=== PATIENT | female | born 1995 | race Caucasian/White ===

== ENCOUNTER 2019-07-12 10:00 | Inpatient (IN) | payer OTHER ==
[2019-07-12 10:30] VITALS: BMI 26.9
[2019-07-12] MEDS ORDERED: DINOPROSTONE 10 MG VAGINAL SUPPOSITORY VG ONE (11:03)
--- NOTE | 2019-07-12 12:28 | HP ---
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 DESIGN INTERN: No: Alzheimer's, CVA, Dementia, Migraine, Multiple Sclerosis, Peripheral Neuropathy, Parkinson's, Seizure, Syncope, TIA, Vertigo, Other Cardiovascular: No: AFIB, Aneurysm, Aortic Insufficiency, Aortic Stenosis, CAD, CHF, Deep Vein Thrombosis, HTN, Hyperlipdemia, NE, Mitral Insufficiency, Mitral Stenosis, Murmur, Pulmonary Hypertension, Other Pulmonary: No: Asthma, Bronchitis, Cancer, COPD, O2 Dependent, Pneumonia, Previously Intubated, Pulmonary Embolus, Pulmonary Fibrosis, Sleep Apnea, Other Gastrointestinal: No: Ascites, Cancer, Constipation, Crohn's Disease, Diverticulitis, Diverticulosis, Esophageal Varices, Gastritis, GERD, GI Bleed, Hemorrhoids, Hiatal Hernia, Inflamatory Bowel Disease, Irritable Bowel Disease, Pancreatitis, Peptic Ulcer Disease, Ulcerative Colitis, Other Hepatobiliary: No: Cirrhosis, Cholelithiasis, Cholecystitis, Choledocholithiasis , Hepatitis A, Hepatitis B, Hepatitis C, Other Renal/: No: Renal Failure, Renal Inusuff, BPH, Cancer, Hematuria, Hemodialysis , Neurogenic Bladder, Renal Calculi, UTI, Other Reproductive: No: Ectopic , Endometriosis, Fibroids, PID, Polycystic Ovary Syndrome, Postmenopausal, Other ...: 1 ...Para: 0 ...Term: 0 ...: 0 ...Spon : 0 ...Induced : 0 ...Multiple Gestation: 0 ...LMP: 09/29/18 ...EDC by Sono: 07/06/18 Heme/Onc: No: Anemia, B12 Deficiency, Bleeding Disorder, Cancer, Current Chemotherapy, Current Radiation Therapy, Hemochromatosis, Hypercoaguable State, Myeloproliferative Synd, Sickle Cell Disease, Sickle Cell Trait, Thrombocytopenia, Other Infectious Disease: No: AIDS, C-Diff, Herpes Zoster, HIV, MRSA, STD's, Tuberculosis, VREF, Other Psych: No: Addictions, Anxiety, Bipolar, Depression, Panic, Psychosis, Schizophrenia, Other Musculoskeletal: No: Bursitis, Chronic low back pain, Hemiparesis, Hemiplegia, Osteoarthritis, Paraplegia, Other Rheumatology: No: Fibromyalgia, Gout, Lupus, Rheumatoid Arthritis, Sarcoidosis, Vasculitis, Other ENT: No: Allergic Rhinitis, Sinusitis, Other Endocrine: No: Cumberland's Disease, Kaitlynn's Disease, Diabetes Insipidus, Diabetes Mellitus, Hyperparathyroidism, Hyperthyroidism, Hypothyroidism, Osteopenia, SIADH, Other Dermatology: No: Basal Cell, Cellulitis, Eczema, Melanoma, Psoriasis, Squamous Cell, Other - Past Surgical History Past Surgical History: No: None, AAA Repair, AICD, Amputation, Appendectomy, Arthrosocopy, AV Fistula/Graft, Bariatric Surgery, Breast Biopsy, Bypass, CABG, Carotid Endarterectomy, Cataract Removal, Cholecystectomy, Colectomy, Colonoscopy, Colostomy, Craniotomy, , Cystectomy, Hernia Repair, Hysterectomy, Ileal Conduit, Ileosotomy, Joint Replacement, Kidney Transplant, Laminectomy, Liver Transplant, Mastectomy, Nephrectomy, Oopherectomy, Orchiectomy, Permanent Pacemaker, Prostatectomy, Splenectomy, Stent, Thoracotomy , TURP, Tonsillectomy, Tubal Ligation, Upper Endoscopy, Valve Replacement, Vasectomy, Vein Stripping/Ligation Hx Myomectomy: No Hx Transabdominal Cerclage: No - Smoking History Smoking history: Never smoked Have you smoked in the past 12 months: No - Alcohol/Substance Use Hx Alcohol Use: No History of Substance Use: reports: None - Social History History of Recent Travel: No Home Medications - Allergies Allergies/Adverse Reactions: Allergies Allergy/AdvReac Type Severity Reaction Status Date / Time No Known Allergies Allergy Verified 07/12/19 10:31 - Home Medications Home Medications: Ambulatory Orders Vitamins (Sjr) - 1 tab PO DAILY 06/25/19 Family Disease History - Family Disease History Family History: Unremarkable Review of Systems - Review of Systems Constitutional: reports: No Symptoms Eyes: reports: No Symptoms HENT: reports: No Symptoms Neck: reports: No Symptoms Cardiovascular: reports: No Symptoms Respiratory: reports: No Symptoms Gastrointestinal: reports: No Symptoms Genitourinary: reports: No Symptoms Breasts: reports: No Symptoms Reported Musculoskeletal: reports: No Symptoms Integumentary: reports: No Symptoms Neurological: reports: No Symptoms Endocrine: reports: No Symptoms Hematology/Lymphatic: reports: No Symptoms Psychiatric: reports: No Symptoms Physical Exam - Maternity Vital Signs: Vital Signs Temperature 98.1 F 07/12/19 10:00 Pulse Rate 95 H 07/12/19 10:00 Respiratory Rate 18 07/12/19 10:00 Blood Pressure 104/65 07/12/19 10:00 O2 Sat by Pulse Oximetry (%) Constitutional: Yes: Well Nourished HENT: Yes: Atraumatic Neck: Yes: Supple Cardiovascular: Yes: Regular Rate and Rhythm Breast(s): Yes: WNL - Abdominal Exam/OB Number of Fetuses: Single Presentation: Vertex (bedside sono performed) Contractions: No Regularity: Irritability Intensity: Unaware Monitor Mode: External Category: I Accelerations: Uniform Decelerations: None - Vaginal Exam/OB Vaginal Bleediing: No Speculum Exam: No (as per Dr Pagan) Presentation: Vertex/Position (bedside sono done) - Physical Exam Edema: Yes Edema: LLE: Trace, RLE: Trace Integumentary: Yes: WNL ...Motor Strength: WNL Psychiatric: Yes: Alert, Oriented - Labs Lab Results: pending Imaging - Results Ultrasound: Report Reviewed Problem List - Problems (1) Code(s): Z34.90 - ENCNTR FOR SUPRVSN OF NORMAL , UNSP, UNSP TRIMESTER Qualifiers: Weeks of gestation: 40 weeks Qualified Code(s): Z3A.40 - 40 weeks gestation of Assessment/Plan 23 y/o G1 @ 40.6wks, presenting for induction of labor at late term, uncomplicated , GBS positive by early Ux. Risks and complications of induction of labor discussed. All questions answered. Informed consent obtained and cervidil previously placed. -Continue induction -GBS prohylaxis once in labor -Continuous monitoring
[2019-07-12 13:21] LABS: BASO % 0.3 % (0-2.0); EOS % 0.4 % (0-4.5); HEMATOCRIT 33.8 % (32.4-45.2); HEMOGLOBIN 11.4 GM/dL (10.7-15.3); LYMPH % 20.5 % (8-40); MCH 31.5 pg (25.7-33.7); MCHC 33.8 g/dl (32.0-36.0); MEAN PLT VOLUME 8.9 fl (7.5-11.1); MONO % 11.4 % (3.8-10.2); NEUT % 67.4 % (42.8-82.8); PLATELET COUNT 208 K/MM3 (134-434); RBC 3.64 M/mm3 (3.60-5.2); WHITE BLOOD COUNT 11.3 K/mm3 (4.0-10.0)
[2019-07-12 13:41] LABS: BLOOD UREA NITROGEN 6.9 mg/dL (7-18); CALCIUM 8.8 mg/dL (8.5-10.1); CREATININE 0.4 mg/dL (0.55-1.3)
[2019-07-12 13:42] LABS: INR 0.94 (0.83-1.09); PROTHROMBIN TIME (PATIENT) 11.1 SEC (9.7-13.0)
[2019-07-12 13:44] LABS: ACTIVATED PTT 27.4 SECONDS (25.2-36.5)
--- NOTE | 2019-07-12 16:20 | PN ---
Progress Note, Labor Vaginal Exam #1 Labor Exam Date: 07/12/19 Labor Exam Time: 16:19 Heart Rate (range): Cat I Dilatation: 2 Effacement (%): 50 Amniotic Membrane Status: Intact Presentation: Vertex/Position Station: -4 Remarks: Pt comfortable Cervidil still in Will remove in 2 hours and start pitocin Kat Frias MD
[2019-07-12] MEDS ORDERED: ELECTROLYTE-148 SOLN 1,000 ML IV SCH (17:15)
[2019-07-12] MEDS ORDERED: OXYTOCIN 30 UNITS in 0.9% NS 30 UNIT/500 ML INFUS.BAG IVPB SCH (18:45)
--- NOTE | 2019-07-12 19:18 | PN ---
Progress Note, Labor Vaginal Exam #2 Labor Exam Date: 07/12/19 Labor Exam Time: 19:17 Heart Rate (range): Cat I Presentation: Vertex/Position Remarks: Cervidil removed 6pm Start pitocin Stadol/epidural prwillow Frias MD
--- NOTE | 2019-07-12 19:32 | PN ---
Progress Note, Labor Vaginal Exam #3 Labor Exam Date: 07/12/19 Labor Exam Time: 19:31 Heart Rate (range): Cat I Dilatation: 2 Effacement (%): 50 Amniotic Membrane Status: Ruptured Presentation: Vertex/Position Station: -3 Remarks: AROM, clear Start Pit Anticipate Kat Frias MD
[2019-07-12] MEDS ORDERED: OXYTOCIN 30 UNITS in 0.9% NS 30 UNIT/500 ML INFUS.BAG IVPB ONE (19:39)
[2019-07-13] MEDS ORDERED: PROMETHAZINE HCL 25 MG/1 ML VIAL IVPB PRN (00:19)
[2019-07-13] MEDS ORDERED: BUTORPHANOL TARTRATE 1 MG/ML VIAL IVPB PRN (00:19)
--- NOTE | 2019-07-13 00:19 | PN ---
Progress Note, Labor Vaginal Exam #1 Labor Exam Date: 07/13/19 Labor Exam Time: 00:19 Heart Rate (range): Cat I Dilatation: 2 Effacement (%): 70 Amniotic Membrane Status: Ruptured Presentation: Vertex/Position Station: -3 Remarks: No significant change Cont pitocin Stadol/epidural prn Kat Frias MD
--- NOTE | 2019-07-13 06:12 | PN ---
Progress Note, Labor Vaginal Exam #4 Labor Exam Date: 07/13/19 Labor Exam Time: 06:10 Heart Rate (range): Cat I Dilatation: 2-3 Effacement (%): 70 Amniotic Membrane Status: Ruptured Presentation: Vertex/Position Station: -3 Remarks: No significant change Now almost 12 hours with pitocin/AROM and no progression into active labor Given option to continue IOL s/p epidural vs proceeding with PLTCS now Pt opts for PLTCS now, risks discussed, consents signed Proceed to OR for failed IOL Kat Frias MD
[2019-07-13] MEDS ORDERED: CITRIC ACID/SODIUM CITRATE 30 ML UNIT-DOSE CUP PO ONE (06:35)
[2019-07-13] MEDS ORDERED: OXYTOCIN 20 UNITS in 0.9% NS 20 UNIT/1,000 ML INFUS.BAG IV ONE (07:58)
--- NOTE | 2019-07-13 09:15 | PN ---
Progress Note (short form) - Note Progress Note: Pt still uncomfortable Cervix unchanged C/S called at 6:10AM Anesthesia unavailable at this time, been aware for over an hour of need for PLTCS for failed IOL. No MD available at this time. Kat Frias MD
[2019-07-13] MEDS ORDERED: ceFAZolin SODIUM 1 GM VIAL ONE (09:52)
[2019-07-13] MEDS ORDERED: KETOROLAC TROMETHAMINE 30 MG/1 ML VIAL ONE (09:52)
[2019-07-13] MEDS ORDERED: PHENYLEPHRINE HCL 10 MG/1 ML SINGLE DOSE VIAL ONE (09:52)
[2019-07-13] MEDS ORDERED: OXYTOCIN 10 UNITS/ML VIAL ONE (10:08)
[2019-07-13] MEDS ORDERED: METHYLERGONOVINE MALEATE 0.2 MG/1 ML AMP IM PRN (10:30)
[2019-07-13] MEDS ORDERED: OXYTOCIN 20 UNITS in 0.9% NS 20 UNIT/1,000 ML INFUS.BAG IV SCH (10:30)
--- NOTE | 2019-07-13 10:30 | OP ---
Operative Note - Note: Operative Date: 07/13/19 Pre-Operative Diagnosis: Failed medical induction, 41 week Operation: Primary Low Transverse Findings: VFI, LORI position, nuchal x 1, no meconium. Apgars 9/9. Weight pending Normal tubes and ovaries bilaterally Post-Operative Diagnosis: Same as Pre-op Surgeon: Denise Frias Porter Head: Romero De Anesthesia: Spinal Estimated Blood Loss (mls): 400 Drains, Volume Out (mls): 200 (clear urine) Operative Report Dictated: Yes
[2019-07-13] MEDS ORDERED: ONDANSETRON 4 MG/2 ML VIAL IVPUSH PRN (10:46)
[2019-07-13] MEDS ORDERED: ACETAMINOPHEN 1000 MG/100 ML VIAL (NON FORMULARY) IVPB ONE (10:48)
--- NOTE | 2019-07-13 11:48 | OP ---
DATE OF OPERATION: 07/13/2019 PREOPERATIVE DIAGNOSIS: A 41-week , failed medical induction. POSTOPERATIVE DIAGNOSIS: A 41-week , failed medical induction. PROCEDURE: Primary low transverse section. ANESTHESIA: Spinal. SURGEON: Denise Frias MD CHEF GERMAN: NANCY Grey ESTIMATED BLOOD LOSS: 400. INTRAVENOUS FLUIDS: Per anesthesia record. URINE OUTPUT: Clear urine, 200 mL. FINDINGS: Viable female , LORI position, asynclitic, nuchal x1, no meconium, 9, 9, weight pending, normal tubes and ovaries bilaterally. COMPLICATIONS: None. CONDITION: Stable to recovery room NATURE OF THE PROCEDURE FOLLOWS: After the appropriate consents were signed, the patient was taken to the operating room where spinal anesthesia was administered. She was placed in the supine position. The abdomen was prepped and draped in the normal sterile fashion. Sterile Cooley catheter was inserted into the bladder. Anesthesia was confirmed. Time-out was performed confirming correct patient and procedure. A Pfannenstiel skin incision was made, carried through to the underlying layers until the fascia was nicked in the midline. The fascia was extended laterally with the Summers scissors. The inferior aspect of the fascia was grasped with the Artur clamps, tented upwards, and the rectus muscles dissected off bluntly and. Attention was then paid to the superior aspect, which was taken down in a similar fashion. The rectus muscles were dissected bluntly in the midline. The peritoneum was then entered bluntly. Bladder blade was inserted. The uterus was then incised in a low transverse fashion. Clear amniotic fluid was noted. The head was delivered without difficulty. After the remaining shoulders and body, nuchal was delivered through and reduced upon full delivery of the infant. The cord was clamped and cut. The was handed off to the awaiting pediatric staff. The placenta was removed manually. The uterus was cleared of all clot and debris. The hysterotomy was closed in a single layer with good hemostasis. The adnexa were inspected and noted to be normal. Gutters were cleared of all clot and debris. The muscles reapproximated with a 2-0 chromic. The fascia was closed with a 0 Vicryl. The skin was closed with a 3-0 Vicryl. Good hemostasis and cosmesis. Appropriate bandages were placed. Sponge, lap, needle counts were correct x3. The patient did receive 2 g of Ancef at the start of the procedure. She was taken from the operating room to the recovery area in a stable condition. DENISE FRIAS MD [id number]
[2019-07-13] MEDS ORDERED: IBUPROFEN 800 MG/8 ML IJ IVPB PRN (15:11)
[2019-07-13] MEDS ORDERED: oxyCODONE HCL 5 MG TABLET PO PRN (15:12)
[2019-07-14] MEDS: SIMETHICONE 80 MG TAB.CHEW (FP) PO PRN ×3 (05:26→18:54)
[2019-07-14] MEDS: IBUPROFEN 600 MG TABLET (FP) PO PRN ×3 (05:26→20:49)
--- NOTE | 2019-07-14 06:58 | PN ---
Progress Note (short form) - Note Progress Note: pod 1 s/p c/s , has mild cramps, no excess vaginal bleeding Last Vital Signs Temp Pulse Resp BP Pulse Ox 98.2 F 73 18 96/53 L 99 07/14/19 04:00 07/14/19 04:00 07/14/19 06:00 07/14/19 04:00 07/13/19 21:00 abdomen soft, no distension, no cva uterus firm lochia mild no calf tenderness plan ambulate , cbc. advance diet
[2019-07-14 08:47] LABS: BASO % 0.3 % (0-2.0); EOS % 0.8 % (0-4.5); HEMATOCRIT 28.3 % (32.4-45.2); HEMOGLOBIN 9.7 GM/dL (10.7-15.3); LYMPH % 16.8 % (8-40); MCH 32.3 pg (25.7-33.7); MCHC 34.2 g/dl (32.0-36.0); MEAN CELL VOLUME 94.6 fl (80-96); MEAN PLT VOLUME 8.8 fl (7.5-11.1); MONO % 9.5 % (3.8-10.2); NEUT % 72.6 % (42.8-82.8); PLATELET COUNT 182 K/MM3 (134-434); RBC 2.99 M/mm3 (3.60-5.2); RDW 12.9 % (11.6-15.6); WHITE BLOOD COUNT 14.2 K/mm3 (4.0-10.0)
[2019-07-14] MEDS ORDERED: BISACODYL 10 MG SUPP.RECT RC PRN (10:31)
[2019-07-14] MEDS: ACETAMINOPHEN 325 MG TABLET (FP) PO PRN ×2 (12:22→20:49)
--- NOTE | 2019-07-14 13:47 | PN ---
Progress Note (short form) - Note Progress Note: Anesthesia POD#1 S/P under Spinal anesthesia and Duramorph VSS,no N/V,no pain issues, leg strength is good. No complications to anesthesia seen. Ai Barboza MD.
[2019-07-15] MEDS: SIMETHICONE 80 MG TAB.CHEW (FP) PO PRN ×5 (04:37→20:42)
[2019-07-15] MEDS: ACETAMINOPHEN 325 MG TABLET (FP) PO PRN ×5 (04:37→20:42)
[2019-07-15] MEDS: IBUPROFEN 600 MG TABLET (FP) PO PRN ×5 (04:38→20:42)
[2019-07-15 09:26] VITALS: PULSE 79
--- NOTE | 2019-07-15 09:57 | PN ---
Post Progress Note - Subjective Subjective: 23 yo Para 1 status post primary , seen and evaluation. Doing well. Post Day: 2 Type of Delivery: Primary C/S Vital Signs: Vital Signs Temperature 98.0 F 07/15/19 09:25 Pulse Rate 79 07/15/19 09:25 Respiratory Rate 18 07/15/19 09:25 Blood Pressure 110/70 07/15/19 09:25 O2 Sat by Pulse Oximetry (%) 99 07/13/19 21:00 Breast Exam: Yes: Soft Uterus: Yes: Fundus @ umbilicus Incision: Yes: Dressing dry and intact Abdomen/GI: Yes: Abdomen soft Lochia: Yes: Rubra Lochia, amount: Small Extremities: Yes: Calves non-tender Perineum: Yes: Intact Activity: Ambulating - Labs Labs: CBC WBC 14.2 K/mm3 (4.0-10.0) H 07/14/19 08:00 RBC 2.99 M/mm3 (3.60-5.2) L 07/14/19 08:00 Hgb 9.7 GM/dL (10.7-15.3) L 07/14/19 08:00 Hct 28.3 % (32.4-45.2) L D 07/14/19 08:00 MCV 94.6 fl (80-96) 07/14/19 08:00 MCH 32.3 pg (25.7-33.7) 07/14/19 08:00 MCHC 34.2 g/dl (32.0-36.0) 07/14/19 08:00 RDW 12.9 % (11.6-15.6) 07/14/19 08:00 Plt Count 182 K/MM3 (134-434) 07/14/19 08:00 MPV 8.8 fl (7.5-11.1) 07/14/19 08:00 Absolute Neuts (auto) 10.3 K/mm3 (1.5-8.0) H 07/14/19 08:00 Neutrophils % 72.6 % (42.8-82.8) 07/14/19 08:00 Lymphocytes % 16.8 % (8-40) 07/14/19 08:00 Monocytes % 9.5 % (3.8-10.2) 07/14/19 08:00 Eosinophils % 0.8 % (0-4.5) D 07/14/19 08:00 Basophils % 0.3 % (0-2.0) 07/14/19 08:00 Nucleated RBC % 0 % (0-0) 07/14/19 08:00 Problem List - Problems (1) Status post primary low transverse section Code(s): Z98.891 - HISTORY OF UTERINE SCAR FROM PREVIOUS SURGERY Assessment/Plan Status post primary Ambulation Analgesia as needed Continue routine care
[2019-07-16] MEDS: SIMETHICONE 80 MG TAB.CHEW (FP) PO PRN ×3 (01:12→11:35)
[2019-07-16] MEDS: IBUPROFEN 600 MG TABLET (FP) PO PRN ×3 (01:12→11:36)
[2019-07-16] MEDS: ACETAMINOPHEN 325 MG TABLET (FP) PO PRN ×3 (01:12→11:35)
[2019-07-16 09:32] LABS: BASO % 0.6 % (0-2.0); EOS % 4.4 % (0-4.5); HEMATOCRIT 31.7 % (32.4-45.2); HEMOGLOBIN 10.9 GM/dL (10.7-15.3); LYMPH % 28.4 % (8-40); MCH 32.2 pg (25.7-33.7); MCHC 34.5 g/dl (32.0-36.0); MEAN CELL VOLUME 93.2 fl (80-96); MEAN PLT VOLUME 8.4 fl (7.5-11.1); MONO % 8.9 % (3.8-10.2); NEUT % 57.7 % (42.8-82.8); PLATELET COUNT 254 K/MM3 (134-434); WHITE BLOOD COUNT 9.8 K/mm3 (4.0-10.0)
--- NOTE | 2019-07-16 10:05 | DS ---
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: Vital Signs Temperature 98.7 F 07/15/19 21:30 Pulse Rate 79 07/15/19 21:30 Respiratory Rate 18 07/15/19 21:30 Blood Pressure 107/69 07/15/19 21:30 O2 Sat by Pulse Oximetry (%) 99 07/15/19 09:00 Constitutional: Yes: Well Nourished Eyes: Yes: Conjunctiva Clear HENT: Yes: Atraumatic Neck: Yes: Supple Cardiovascular: Yes: Regular Rate and Rhythm Respiratory: Yes: Regular Gastrointestinal: Yes: Normal Bowel Sounds Vaginal Exam: Yes: Normal Cervix: Yes: Normal Uterus: Yes: Firm ....Post : Yes: Uterus firm Breast(s): Yes: WNL Musculoskeletal: Yes: WNL Extremities: Yes: WNL Wound/Incision: Yes: Well Approximated, Steri Strips (in place) Neurological: Yes: Alert, Oriented Psychiatric: Yes: Alert, Oriented Labs: CBC, BMP 07/16/19 09:04 07/12/19 12:28 Delivery - Delivery Type of Anesthesia: Spinal Episiotomy/Laceration: None EBL (cc): 400 Delivery, Single - Stages of Labor Date of Delivery: 07/13/19 Time of Delivery: 10:11 Time Placenta Delivered: 10:12 - Condition of Infant Public Stenographer/Floor Sweeper Present: Yes Gender: Female Weight: 8 lb 3 oz Position: Left, OA Total Hours ROM (Hrs/Mins): 14hrs 35mins - 1 Minute Total Score: 9 5 Minutes Total Score: 9 - Feeding Plan Initial Plan: Elected not to breastfeed exclusively throughout hospitalization Discharge Summary Reason For Visit: INDUCTION OF LABOR Current Active Problems (Acute) Status post primary low transverse section (Acute) Procedures: Principal: delivery Hospital Course: Routine post op care Condition: Good - Instructions Diet, Activity, Other Instructions: Regular Diet Referrals: Denise Frias MD [Staff Physician] - Disposition: HOME - Home Medications Comprehensive Discharge Medication List: Ambulatory Orders Vitamins (Sjr) - 1 tab PO DAILY 06/25/19
[2019-07-16 11:21] VITALS: BP 110/70; TEMP 98
--- NOTE | 2019-07-18 15:34 | PATH ---
Surgical Pathology Report Patient Name: AL CRUZ Med. Rec. #: [id number] /Age/Gender: 1995 (Age: 23) / F Account: [id number] Location: [facility] OBS/RADIOLOGY ADMINISTRATOR Taken: 07/13/2019 Received: 07/14/2019 Reported: 07/18/2019 Physicians: Denise Frias Specimen(s) Received PLACENTA Clinical History 41 weeks gestation, , history of abnormal Pap, HPV positive Final Diagnosis PLACENTA: THIRD TRIMESTER PLACENTA. TRIVASCULAR CORD. MEMBRANES WITH NO DIAGNOSTIC ABNORMALITIES. Electronically Signed Alicia Dos Santos M.D. Gross Description The specimen is received fresh labeled placenta and is a 576 gram, 17.0 x 17.0 x 3.8 cm. placenta with attached membranes and umbilical cord. The attached membranes are rodriguez, translucent with focal opacities and insert marginally. The umbilical cord measures 36 cm. in length and averages 1 cm. in diameter. The cord inserts eccentrically, 4 cm. to the nearest margin. No true knots or strictures are identified. Cut surface of the umbilical cord reveals 3 vessels. The surface is fernandez-blue with minimal fibrin deposition and appropriate caliber vessels. The maternal surface is red-brown with focal defects. Sectioning reveals red-brown, spongy parenchyma. No lesions are identified. Director Of Science sections are submitted in three cassettes as follows: 1- membrane rolls and umbilical cord; 2-3- full thickness sections of placenta. 07/17/2019 [facility]07/17/2019
== END 2019-07-16 12:36 | disposition home or self-care (01) | DRG 540 ==
LOC: JLDR 10:00 → J3W 07-13 11:50
PROVIDERS: ADMIT Obstetrics & Gynecology; ATTEND Obstetrics & Gynecology
PROC: 3E0P7VZ Introduction of Hormone into Female Reproductive, Via Natural or Artificial Opening (ICD-10-PCS; 2019-07-12)
PROC: 10D00Z1 Extraction of Products of Conception, Low, Open Approach (ICD-10-PCS; principal; 2019-07-13)
DX: O61.0 Failed medical induction of labor (principal); Z3A.41 41 weeks gestation of pregnancy; Z22.330 Carrier of Group B streptococcus; O48.0 Post-term pregnancy; Z37.0 Single live birth
CPT/HCPCS: 36415; 80048; 85025; 85610; 85730; 86593; 86850; 86900; 86901; 88307-TC